=== PATIENT | female | born 1975 | race Asian ===

== ENCOUNTER 2024-12-21 08:23 | Emergency (ER) | payer SELFPAY ==
[~2024-12-21] VITALS: Ht 167.6 cm; Wt 71.6 kg
[2024-12-21 08:28] VITALS: O2SAT 100
[2024-12-21] MEDS ORDERED: ACET-2708 MT (09:54)
[2024-12-21] MEDS ORDERED: BO1 TP (09:54)
[2024-12-21] MEDS: IBUPROFEN 400MG TABLET PO ONE (10:34)
[2024-12-21] MEDS: BACITRACIN ZINC OINT UDPKT TOP ONE (10:35)
[2024-12-21 10:39] VITALS: BP 144/78; PULSE 78; RESP 18; TEMP 37.1; O2SAT 98
== END 2024-12-21 10:42 | disposition home or self-care (01) ==
LOC: ER 08:23
DX: S60.512A Abrasion of left hand, initial encounter (principal); S60.511A Abrasion of right hand, initial encounter; S00.81XA Abrasion of other part of head, initial encounter; S80.211A Abrasion, right knee, initial encounter; S80.212A Abrasion, left knee, initial encounter; W01.0XXA Fall on same level from slipping, tripping and stumbling without subsequent striking against object, initial encounter; Y93.89 Activity, other specified; Y92.89 Other specified places as the place of occurrence of the external cause; Y99.8 Other external cause status
CPT/HCPCS: 73110; 81025; 99283